=== PATIENT | male | born 1960 | race Two or more races ===

== ENCOUNTER 2024-09-29 17:45 | Emergency (ER) | payer OTHER ==
[~2024-09-29] VITALS: Ht 172.7 cm; Wt 89.8 kg
[2024-09-29] MEDS ORDERED: DEXAMETHASONE SODIUM PHOSPHATE 4 MG/ML VIAL IM ONE (21:00)
[2024-09-29] MEDS ORDERED: CYCLOBENZAPRINE HCL 5 MG TABLET PO ONE (21:00)
[2024-09-29] MEDS ORDERED: ACETAMINOPHEN 325 MG TABLET PO ONE (21:00)
== END 2024-09-29 21:44 | disposition home or self-care (01) ==
LOC: ER 17:48
DX: M54.50 Low back pain, unspecified (principal); Z88.0 Allergy status to penicillin; Z88.6 Allergy status to analgesic agent